=== PATIENT | female | born 1940 | race Two or more races ===

== ENCOUNTER 2016-09-26 20:06 | Emergency (ER) | payer MEDICARE, OTHER ==
[~2016-09-26] VITALS: Ht 170.2 cm; Wt 90.7 kg
[2016-09-26] MEDS ORDERED: HYDROMORPHONE 1 MG/1 ML DISP.SYRIN IV ONE (22:30)
[2016-09-26] MEDS ORDERED: ONDANSETRON HCL/PF 4 MG/2 ML VIAL IVP ONE (22:30)
[2016-09-26] MEDS ORDERED: IV NS 0.9% 500 ML BAG IV ONE (22:30)
[2016-09-26] MEDS ORDERED: HYDROMORPHONE 1 MG/1 ML DISP.SYRIN ONE (22:41)
[2016-09-26] MEDS ORDERED: ONDANSETRON HCL/PF 4 MG/2 ML VIAL ONE (22:42)
[2016-09-26] MEDS ORDERED: IV NS 0.9% 500 ML IV ONE (22:42)
[2016-09-26 22:56] LABS: BASOPHILS % (AUTO) 0.5 % (0.0-2.0); DIFF TOTAL % 100 %; EOSINOPHILS # (AUTO) 0.1 /CMM (0.0-0.7); HEMATOCRIT 38 % (33-45); HEMOGLOBIN 12.8 g/dL (11.5-14.8); LYMPHOCYTES # (AUTO) 1.5 /CMM (0.8-4.8); LYMPHOCYTES % (AUTO) 21.6 % (20.0-44.0); MEAN CORPUSCULAR HEMOGLOBIN 31 PG (26.0-33.0); MEAN CORPUSCULAR HGB CONC 33 g/dl (31.0-36.0); MEAN CORPUSCULAR VOLUME 93 fL (82-100); MONOCYTES # (AUTO) 0.6 /CMM (0.1-1.30); NEUTROPHILS # (AUTO) 4.8 /CMM (1.8-8.9); NEUTROPHILS % (AUTO) 67.9 % (43.0-81.0); PLATELET COUNT (AUTO) 186 /CMM (150-450); RED BLOOD CELL COUNT(AUTO) 4.14 MIL/uL (4.0-5.2)
[2016-09-26 23:05] LABS: CALCIUM, SERUM 8.8 mg/dL (8.5-10.1); CREATININE 1.3 mg/dL (0.6-1.3); POTASSIUM 4.6 mmol/L (3.5-5.1)
[2016-09-26 23:46] VITALS: BP 142/84
== END 2016-09-26 23:47 | disposition home or self-care (01) ==
LOC: ER 20:10
DX: M62.838 Other muscle spasm (principal); E86.0 Dehydration; I10 Essential (primary) hypertension; F10.20 Alcohol dependence, uncomplicated; F17.210 Nicotine dependence, cigarettes, uncomplicated; Z88.6 Allergy status to analgesic agent; Z88.8 Allergy status to other drugs, medicaments and biological substances
CPT/HCPCS: 36415; 80048; 85025; 96374; 96375; 99284; A4606; J1170; J2405; J7040; Z7610

== ENCOUNTER 2025-07-18 09:07 | Inpatient (IN) | payer BC, MEDICARE, OTHER ==
[~2025-07-18] VITALS: Ht 170.2 cm; Wt 93.4 kg
[2025-07-18] MEDS ORDERED: ONDANSETRON HCL/PF 4 MG/2 ML VIAL ONE (10:09)
[2025-07-18] MEDS ORDERED: HYDROMORPHONE 1 MG/1 ML DISP.SYRIN ONE ×2 (10:09→11:05)
[2025-07-18] MEDS: ONDANSETRON HCL/PF 4 MG/2 ML VIAL IVP ONE (10:15)
[2025-07-18] MEDS: IV NS 0.9% 500 ML BAG IV ONE (10:15)
[2025-07-18] MEDS: HYDROMORPHONE INJ 2 MG/ML DISP.SYRIN IV ONE ×2 (10:15→11:11)
[2025-07-18] MEDS ORDERED: OMEP40CA21 PO (11:41)
[2025-07-18] MEDS ORDERED: OXCA150T13 (11:41)
[2025-07-18] MEDS ORDERED: FURO20TA4 PO (11:41)
[2025-07-18] MEDS ORDERED: GABA600T12 PO (11:41)
[2025-07-18] MEDS ORDERED: SUMA100T16 PO (11:41)
[2025-07-18] MEDS ORDERED: HYDR-3980 PO (11:41)
[2025-07-18 11:47] LABS: PLATELET COUNT (AUTO) 95 K/uL (150-450); RED BLOOD CELL COUNT(AUTO) 4.36 MIL/uL (4.0-5.2); RED CELL DISTRIBUTION WIDTH 16.5 % (11.5-15.0); WHITE BLOOD COUNT (AUTO) 7.7 K/uL (4.3-11.0)
[2025-07-18 12:02] LABS: CALCIUM, SERUM 8.8 mg/dL (8.5-10.1); CREATININE 0.7 mg/dL (0.6-1.3); SODIUM SERUM 136.0 mmol/L (136-145); UREA NITROGEN, BLOOD 12.0 mg/dL (7-18)
[2025-07-18 13:37] LABS: LYMPHOCYTES % (MANUAL) 14 % (16-48); MONOCYTES % (MANUAL) 3 % (0-11.0); NEUTROPHILS % (MANUAL) 83 (42-76); PLATELET ESTIMATE DECREASED
[2025-07-18 13:46] VITALS: BP 181/77; TEMP 97.9; O2SAT 97
[2025-07-18] MEDS ORDERED: Z GUARD REMEDY 4 OZ OINT TP PRN (14:30)
[2025-07-18] MEDS ORDERED: ACETAMINOPHEN 325 MG TABLET PO PRN (14:30)
[2025-07-18] MEDS ORDERED: GABAPENTIN 400 MG CAPSULE PO SCH (14:30)
[2025-07-18] MEDS: LOSARTAN/HCTZ 50-12.5MG/ 1 EA TABLET PO SCH (15:30)
[2025-07-18 16:00] VITALS: BP 156/65; TEMP 98.1; O2SAT 99
[2025-07-18] MEDS: OXCARBAZEPINE 150 MG TABLET PO SCH (17:32)
[2025-07-18] MEDS: ONDANSETRON HCL/PF 4 MG/2 ML VIAL IVP PRN (17:32)
[2025-07-18] MEDS: MORPHINE SULFATE INJ 4 MG/ML DISP.SYRIN IV PRN (17:33)
[2025-07-18] MEDS: ENOXAPARIN SODIUM 40 MG/0.4 ML DISP.SYRIN SQ SCH (17:45)
[2025-07-18] MEDS: HYDROCODONE/APAP 10/325MG TABLET PO PRN (18:07)
[2025-07-18 20:00] VITALS: BP 128/80; TEMP 97.9; O2SAT 96
[2025-07-19 06:49] LABS: PLATELET COUNT (AUTO) 142 K/uL (150-450); RED BLOOD CELL COUNT(AUTO) 4.04 MIL/uL (4.0-5.2); RED CELL DISTRIBUTION WIDTH 15.6 % (11.5-15.0); WHITE BLOOD COUNT (AUTO) 4.6 K/uL (4.3-11.0)
[2025-07-19 07:00] VITALS: BP 155/62; TEMP 97.5; O2SAT 96
[2025-07-19 07:29] LABS: CALCIUM, SERUM 8.6 mg/dL (8.5-10.1); CREATININE 0.8 mg/dL (0.6-1.3); PHOSPHORUS 3.7 mg/dL (2.5-4.9); SODIUM SERUM 136.0 mmol/L (136-145); UREA NITROGEN, BLOOD 11.0 mg/dL (7-18)
[2025-07-19] MEDS: GABAPENTIN 300 MG CAPSULE PO SCH (08:39)
[2025-07-19 10:02] VITALS: BP 149/69
[2025-07-19] MEDS ORDERED: AMIT50TA3 PO (13:13)
[2025-07-19] MEDS ORDERED: HYDR-3980 PO (13:13)
== END 2025-07-19 18:57 | disposition home or self-care (01) | DRG 74 ==
LOC: ER 09:13 → MED 13:02
PROVIDERS: ADMIT Nurse Practitioner Acute Care; ATTEND Nurse Practitioner Acute Care
DX: B02.22 Postherpetic trigeminal neuralgia (principal); G62.9 Polyneuropathy, unspecified; I10 Essential (primary) hypertension; I05.0 Rheumatic mitral stenosis; G89.29 Other chronic pain; R51.9 Headache, unspecified
CPT/HCPCS: 36415; 70450-TC; 80048-TC; 83735-TC; 84100-TC; 85025-TC; 85027-TC; G0378; J1171; J1650; J2270; J2405; J7040